=== PATIENT | male | born 1965 | race Caucasian/White ===

== ENCOUNTER 2016-08-12 05:41 | Day surgery (SDC) | payer OTHER ==
[2016-08-12] VITALS (20 sets, daily range): BP systolic 128–166; BP diastolic 61–85; PULSE 64–84; RESP 12–23; Ht 195.6 cm; Wt 126.5 kg
[~2016-08-12] VITALS: Ht 195.6 cm; Wt 126.5 kg
[2016-08-12] MEDS ORDERED: ROCURONIUM 50 MG INJ ONE (06:20)
[2016-08-12] MEDS ORDERED: LIDOCAINE 2% (SDV) 5 ML INJ ONE (06:20)
[2016-08-12] MEDS ORDERED: PROPOFOL 20 ML ONE (06:20)
[2016-08-12] MEDS ORDERED: NEOSTIGMINE 3 MG/3 ML SYRINGE ONE (06:20)
[2016-08-12] MEDS ORDERED: GLYCOPYRROLATE 1 MG INJ ONE (06:20)
[2016-08-12] MEDS ORDERED: MIDAZOLAM 1 MG/ML 2 ML INJ ONE (06:20)
[2016-08-12] MEDS ORDERED: ONDANSETRON 4 MG INJ ONE (06:21)
[2016-08-12] MEDS ORDERED: FENTAnyl 50 MCG/ML VIAL ONE (06:21)
[2016-08-12] MEDS ORDERED: DEXAMETHASONE 4 MG/ML 1 ML INJ ONE (06:21)
[2016-08-12] MEDS ORDERED: ROPIVACAINE 0.5 % 30 ML VIAL ONE ×2 (06:21→07:05)
[2016-08-12] MEDS ORDERED: LIDOCAINE 2%/EPI 30 ML INJ ONE (06:22)
[2016-08-12] MEDS ORDERED: SUCCINYLCHOLINE CHLORIDE 100 MG/5 ML SYG IV ONE (06:22)
[2016-08-12] MEDS ORDERED: CEFAZOLIN 1 GM INJ ONE ×2 (06:23→07:00)
[2016-08-12] MEDS ORDERED: EPHEDrine SULFATE 50 MG/5 ML SYG IV PRN ×2 (06:30)
[2016-08-12] MEDS ORDERED: DIPHENHYDRAMINE 50 MG INJ IV PRN ×2 (06:30)
[2016-08-12] MEDS ORDERED: MEPERIDINE 25 MG INJ IV PRN ×2 (06:30)
[2016-08-12] MEDS ORDERED: morphine (1 MG/ML) 10ML SYRINGE IV PRN ×6 (06:30)
[2016-08-12] MEDS ORDERED: ATROPINE 1 MG/10 ML SYRINGE IV PRN ×2 (06:30)
[2016-08-12] MEDS ORDERED: MIDAZOLAM 1 MG/ML 2 ML INJ IV PRN ×2 (06:30)
[2016-08-12] MEDS ORDERED: OXYCODONE/ACETAMINOPHEN (5/325) TAB PO PRN ×6 (06:30→07:30)
[2016-08-12] MEDS ORDERED: LABETALOL HCL 20MG INJ IV PRN ×2 (06:30)
[2016-08-12] MEDS ORDERED: ONDANSETRON 4 MG INJ IV PRN ×3 (06:30→07:30)
[2016-08-12] MEDS ORDERED: HYDROmorphONE (0.2 MG/ML) 10ML SYG IV PRN ×6 (06:30)
[2016-08-12] MEDS ORDERED: hydrALAzine 20 MG INJ IV PRN ×2 (06:30)
[2016-08-12] MEDS ORDERED: FENTAnyl 50 MCG/ML VIAL IV PRN ×5 (06:30→06:51)
[2016-08-12] MEDS ORDERED: THROMBIN 5000 UNIT VIAL ONE (07:05)
[2016-08-12] MEDS ORDERED: POLYMYXIN/BACITRACIN 1L IRRIG ONE (07:05)
[2016-08-12] MEDS ORDERED: CA CHLORIDE 10% 10 ML SYRINGE ONE (07:05)
[2016-08-12] MEDS ORDERED: SOD CHLORIDE 0.9% 1,000 ML IV SCH (07:06)
--- NOTE | 2016-08-12 07:06 | HPN ---
Date/Time of Note Date/Time of Note DATE: 08/12/16 TIME: 07:06 Interval H&P Admission Note Pt. seen H&P reviewed: No system changes KIMANI LARSEN MD Aug 12, 2016 07:06
[2016-08-12] MEDS ORDERED: morphine 2 MG INJ IV PRN (07:30)
[2016-08-12] MEDS ORDERED: ATROPINE 1 MG/10 ML SYRINGE ONE (07:54)
[2016-08-12] MEDS ORDERED: hydrALAzine 20 MG INJ ONE (08:11)
[2016-08-12] MEDS ORDERED: LABETALOL HCL 20MG INJ ONE (08:21)
[2016-08-12] MEDS ORDERED: POVIDONE IODINE 10% 28.4 GM OINT ONE (09:19)
--- NOTE | 2016-08-12 15:24 | OPR ---
DATE OF OPERATION: 08/12/2016 PREOPERATIVE DIAGNOSES: 1. Osteochondral lesion medial talar dome, right ankle. 2. Tear of peroneal brevis. POSTOPERATIVE DIAGNOSES: 1. Osteochondral lesion medial talar dome, unstable, 4 x 3 mm. 2. Synovitis and scarring of the right ankle. 3. Split tear of the peroneal brevis. PROCEDURES PERFORMED: 1. Arthroscopy of the right ankle with soft retraction. 2. Excision medial osteochondral lesion of talus. 3. Drilling and microfracture osteochondral lesion of talus. 4. Extensive debridement. 5. Open debridement and repair of split tear of peroneal brevis. 6. Insertion of PRP into the tendon sheath prior to final closure. 7. Short leg cast. SURGEON: Kimani Spain MD GENERAL FREIGHT AGENT: Humberto Griffith MD ANESTHESIA: General with popliteal block. TOURNIQUET TIME: 37 minutes. The patient was taken to the operating room and placed in supine position. Satisfactory popliteal block was given. Satisfactory general anesthesia was administered. DESCRIPTION OF PROCEDURE: The patient taken to the operating room, placed in supine position. Satisfactory popliteal block was given. Satisfactory general anesthesia was administered; 2 grams Ancef given intravenously. The right thigh secured in the thigh coreas. Arms were carefully padded. The right leg was prepped and draped in usual manner. Superficial peroneal nerve was marked out. The ankle was distracted. Standard anteromedial, anterolateral, and posterolateral portals were used, using extreme caution to avoid injuring neurovascular structures. The medial malleolar talar articulation had synovitis. There was synovitis along the front of the ankle and some mild arthritis, both very mild. The lateral corner had impingement along the syndesmotic region. There was scarring along the lateral ligaments. The scar tissue was seen along the anterior gutter and the lateral gutter. There was softening and irregularity along the medial talar dome, more anteriorly than usually seen. There was synovitis and scarring in the posterior ankle. Shaver was inserted, and the medial gutter was debrided. The lateral gutter was debrided. The anterior gutter and posterior gutters were debrided. The osteochondral lesion was palpated and outlined. It was excised sharply with the instruments. We had good vertical wall that was 4 x 3 mm. One drill hole was made with 0.045 K-wire, and one microfracture hole was made. After complete debridement, the ankle was irrigated clear. It was then reprepped and draped, and the operation was performed. The leg and ankle was repositioned. Incision was made from several centimeters above the tip of the fibula and extended distally. The peroneal tendon sheath was opened. Peroneal brevis had a split tear which was debrided sharply and removed. It extended above the superior peroneal retinaculum. Severe synovitis was excised from the tendon sheath proximally and distally. The split tear of the peroneal brevis was repaired with a running 3-0 PDS. After the split tear was removed, part of the tendosynovitis was removed. We irrigated the wounds. We then closed the peroneal tendon sheath with a running PDS. We injected PRP into the tendon sheath after it was closed. The wounds were irrigated again with antibiotic solution, and the subcutaneous tissue was closed with 3-0 undyed Vicryl, and then platelet-poor material was injected into the subcutaneous tissue. Skin was closed with 4-0 black nylon. An ankle block was performed with 0.5% ropivacaine. Compression dressing was applied as well as short-leg cast in neutral position. Interprocedure sponge and needle count was correct. The patient tolerated the procedure well. The cast was applied in the recovery room. DISTRIBUTION AGENT ORTHOPEDIC SURGEON: During the procedure, an assistant oceanographer orthopedic surgeon was used at my request. The assistant oceanographer helped with manipulating the ankle, mobilizing the arthroscope, and helped with retracting and suturing the peroneal tendons. Without a skilled orthopedic surgeon assisting me, this could not have been done, and he should be compensated appropriately. Dictated By: KIMANI MORENO/YUDI Conf#: [id number] DID#: [id number] DULCE
== END 2016-08-12 13:50 | disposition home or self-care (01) ==
LOC: SDS 05:41
PROVIDERS: ATTEND Orthopaedic Surgery
DX: M94.8X7 Other specified disorders of cartilage, ankle and foot (principal); M65.871 Other synovitis and tenosynovitis, right ankle and foot; S86.311D Strain of muscle(s) and tendon(s) of peroneal muscle group at lower leg level, right leg, subsequent encounter; X58.XXXD Exposure to other specified factors, subsequent encounter; J45.909 Unspecified asthma, uncomplicated
CPT/HCPCS: 28200; 29891; 82962; J0360; J0461; J0690; J1100; J2250; J2270; J2405; J2710; J2795; J3010; J7999